=== PATIENT | male | born 1975 | race Hispanic/Latino ===

== ENCOUNTER 2017-01-08 07:17 | Day surgery (SDC) | payer OTHER ==
[~2017-01-08 07:17] MED LIST: ANCEF/STERILE WATER 2 GM/20 ML IV NR
[2017-01-08] MEDS ORDERED: MARCAINE-EPI 0.25%-1:200,000 INFILTRATI ONE (07:37)
[2017-01-08] MEDS ORDERED: MARCAINE 0.25% INFILTRATI ONE ×2 (07:38→08:29)
[2017-01-08] MEDS ORDERED: XYLOCAINE 1%/ EPI 1:100,000 INFILTRATI ONE ×2 (07:38→08:29)
[2017-01-08 08:02] VITALS: BP 150/92
--- NOTE | 2017-01-08 09:01 | Operative Report ---
Operative Report Operative Report: Date of procedure: 01/08/2017 Pre-operative diagnosis: Right forearm foreign body Post-operative diagnosis: Same Procedure name(s): Excision of right forearm foreign body under fluoroscopic guidance Surgeon: Shanika Bishop MD Land Classifier: None Anesthesia: 0.25% Marcaine, 1% lidocaine with epi EBL: Minimal Complications: None Instrument Count: Correct Indications: This is a 41-year-old male with a history of a right forearm foreign body that was discovered during MRI. Patient needs to have the foreign body removed secondary to subsequently shoulder surgery requiring frequent imaging. He was offered the above-named procedures possible treatment modality. The risks and benefits of discussed until all questions were answered. He was subsequently brought to the OR. Findings: As above Procedure: We reviewed the informed consent. The patient was then placed supine upon the table. He was then prepped and draped in the usual sterile fashion. Local anesthetic was injected in the area identified the fluoroscopic guidance. This was done in a field block manner. A small 1 cm incision was then made overlying the foreign body. Using fluoroscopic guidance we identified the foreign body within the tissues of the forearm. It was then dissected free from its capsule and surrounding scar. Approximately 2 seconds of fluoroscopy was used. The specimen was then placed in the and removed from the field. The skin was then approximated using a 4-0 Monocryl in a subcuticular fashion. The wound was bandaged sterilely with blue. The patient tolerated the procedure well. He remained awake the entire procedure.
--- NOTE | 2017-01-08 09:03 | Short Stay Summary ---
Short Stay Documentation Date of service: 01/08/17 - History H&P: obtained from office - Allergies and Medications Current Medications: Allergies No Known Allergies Allergy (Unverified 12/30/16 15:26) Home Medications Medication Instructions Recorded Confirmed Last Taken Type Carvedilol [Coreg] 25 mg PO QDAY 12/30/16 12/30/16 Unknown History Hydrochlorothiazide [Hctz] 12.5 mg PO QDAY 12/30/16 12/30/16 Unknown History Lisinopril [Zestril TAB] 40 mg PO QDAY 12/30/16 12/30/16 Unknown History amLODIPine [Norvasc] 5 mg PO DAILY 12/30/16 12/30/16 Unknown History - Brief post op/procedure progress note Date of procedure: 01/08/17 Pre-op diagnosis: right forearm foreign body Post-op diagnosis: same Procedure: Excision of right forearm foreign body under fluoroscopic guidance Anesthesia: local Surgeon: FELI SEVERINO Estimated blood loss: minimal Pathology: none Specimen disposition: given to patient/family Condition: stable - Disposition Condition at discharge: Good Short Stay Discharge Plan Diet: regular Follow up with: RUI RASHEED MD [Primary Care Provider] - 7 Days FELI SEVERINO MD [Staff Physician] - 7 Days
--- NOTE | 2017-01-08 16:27 | XRay Report ---
Right forearm 2 views. History: Removal of foreign body. Findings: The train examiner view demonstrates a metallic linear foreign body presumably in the soft tissues of mid forearm. The final image demonstrates no evidence of a foreign body.
== END 2017-01-08 08:40 ==
LOC: OR 07:17
PROVIDERS: ATTEND Surgery
DX: S50.851A Superficial foreign body of right forearm, initial encounter (principal); X58.XXXA Exposure to other specified factors, initial encounter; I10 Essential (primary) hypertension; Z87.442 Personal history of urinary calculi; Z82.49 Family history of ischemic heart disease and other diseases of the circulatory system